=== PATIENT | male | born 1940 | race Caucasian/White ===

== ENCOUNTER 2019-07-21 19:12 | Inpatient (IN) | payer MEDICARE ==
--- NOTE | 2019-07-21 20:30 | RAD ---
XR Chest 1 View Portable History: Altered mental status Comparison: None. Findings: Lungs are hyperinflated. No pneumothorax. No effusion. No confluent airspace consolidation. Cardiac silhouette and mediastinal contours are within normal limits. No acute osseous abnormality. Impression: Lung hyperinflation suggesting obstructive pulmonary disease otherwise no acute intrathor acic abnormality.
[2019-07-21 20:36] LABS: Hemoglobin 6.3 g/dL (14.0-18.0); Mean Corpuscular HGB CONC 33.6 g/dL (32.0-36.0); Mean Corpuscular Hemoglobin 32.1 pg (27.0-31.0); Mean Corpuscular Volume 95.7 fL (78.0-98.0); Mean Platelet Volume 9.4 fL (7.4-10.4); Platelet Count 220 thou/uL (130-400); Red Blood Cell (RBC) Count 1.95 mill/uL (4.70-6.10); White Blood Cell (WBC) Count 16.3 thou/uL (4.8-10.8)
--- NOTE | 2019-07-21 20:48 | CT ---
CT Brain WO Con History: Altered mental status Comparison: None. Findings: Mild atrophy. No acute hemorrhage or infarct. No midline shift or mass effect. Ventricular size and extra-axial CSF spaces are normal. Calvarium is intact. Small right maxillary sinus mucosal retention cyst. Globes are intact. Dehydration of orbital lens. Impression: No acute intracranial abnormality.
[2019-07-21 20:53] LABS: ALT (SGPT) 10 U/L (8-55); AST (SGOT) 14 U/L (5-34); Albumin 3.3 g/dL (3.4-4.8); Alkaline Phosphatase 41 U/L (40-110); Anion Gap 12 mmol/L (10-20); BUN (Urea Nitrogen) 44 mg/dL (8.4-25.7); Bilirubin, Total 0.8 mg/dL (0.2-1.2); CK (CPK) 34 U/L (30-200); Calc. Creatinine Clearance 0 mL/min (70-130); Carbon Dioxide 21 mmol/L (23-31); Chloride 111 mmol/L (98-107); Estimated GFR-MDRD 49; Glucose 112 mg/dL (83-110); Lipase 16 U/L (8-78); Potassium 4.1 mmol/L (3.5-5.1); Protein, Total 5.3 g/dL (5.8-8.1); Sodium 140 mmol/L (136-145)
[2019-07-21 20:59] LABS: Band 27 % (5-11); Hypochromia SLIGHT = 6-15 cells (100X) (0-5/hpf); Lymphocytes 4 % (21-51); MDiff Complete? YES; Neutrophil 69 % (42-75); Platelet Morphology Comment Appears Adequate
[2019-07-21 21:14] LABS: CKMB 1.3 ng/mL (0-6.6)
[2019-07-21] MEDS ORDERED: Pantoprazole 80 MG in Sodium Chloride 0.9% 100 ML IVP SCH (22:15)
[2019-07-21] MEDS ORDERED: Pantoprazole 40 MG VIAL ONE (22:47)
[2019-07-21] MEDS ORDERED: Protamine Sulfate 50 MG/5 ML VIAL ONE (22:47)
[2019-07-22 00:28] LABS: Bilirubin Negative (Negative); Blood, Urine Negative (Negative); Clarity Clear (Clear); Glucose, Urine (Dipstick) Normal (Negative); Leukocyte Negative Leu/uL (Negative); Nitrite Negative (Negative); Protein, Urine (Dipstick) 10 mg/dL (Neg-Trace); Urobilinogen Normal mg/dL (Less than 2)
[2019-07-22 00:38] LABS: Amphetamine Not Detected (NotDetected); Barbiturates Screen Not Detected (NotDetected); Benzodiazepine Screen Not Detected (NotDetected); Cocaine Metabolite Screen Not Detected (NotDetected); Medtox Control Line Valid? VALID (VALID); Medtox Reader # READER 4; Methadone Not Detected (NotDetected); Methamphetamine Not Detected (NotDetected); Opiate Screen Not Detected (NotDetected); Oxycodone Screen Not Detected (NotDetected); Phencyclidine (PCP) Not Detected (NotDetected); THC/Cannabinoid Screen Not Detected (NotDetected); Tricyclic Screen Not Detected (NotDetected)
[2019-07-22 01:27] VITALS: BMI 17.9
[2019-07-22] MEDS ORDERED: Ondansetron PF 4 MG/2 ML Vial IVP PRN (01:31)
[2019-07-22] MEDS ORDERED: Ondansetron ODT 4 MG TAB SL PRN (01:31)
[2019-07-22] MEDS: Sodium Chloride 0.9% 1,000 ML IV SCH ×2 (03:47→16:03)
[2019-07-22] MEDS ORDERED: traMADol HCl 50 MG TAB PO PRN ×2 (08:42→09:33)
[2019-07-22] MEDS ORDERED: FLU VACC TS2019-20(65YR UP)/PF 180 MCG/0.5 ML SYRINGE IM ONE (09:00)
[2019-07-22] MEDS ORDERED: Metoprolol Tartrate 50 MG TAB PO SCH (09:00)
[2019-07-22] MEDS ORDERED: Dutasteride 0.5 MG CAP PO SCH (09:00)
[2019-07-22] MEDS ORDERED: Prevnar 13-Val Conj/PF 0.5 ML SYRINGE IM ONE (09:00)
[2019-07-22] MEDS: Metoprolol Tartrate 50 MG TAB PO SCH ×2 (09:43→22:02)
[2019-07-22] MEDS ORDERED: Pantoprazole 80 MG, Admixture Fee 1 EACH in Sodium Chloride 0.9% 100 ML IVP SCH (09:45)
[2019-07-22] MEDS: Vancomycin HCl 1 GM in Premix Bag 1 BAG IVPB SCH (09:59)
[2019-07-22 10:19] LABS: Hemoglobin 6.6 g/dL (14.0-18.0)
[2019-07-22] MEDS: Piperacillin/Tazobactam 3.375 GM in Sodium Chloride 0.9% 100 ML IVPB SCH ×3 (12:18→22:01)
[2019-07-22] MEDS ORDERED: metroNIDAZOLE 500 MG in Premix Bag 1 BAG IVPB SCH (15:00)
[2019-07-22] MEDS: Vancomycin HCl 25 MG/ML Oral PO SCH ×2 (16:02→22:07)
--- NOTE | 2019-07-22 16:10 | HP ---
CHIEF COMPLAINT: Altered mental status. HISTORY OF PRESENT ILLNESS: This patient is an 79-year-old male, who was brought into the emergency department via EMS. The patient is confused and was unable to give any significant history. Apparently, EMS told the ER that he was brought in because of altered mental status and that he had not been himself for the last couple of weeks. I did call the patient's common-law , Ms. Eastman and she says that he actually does not have any underlying dementia that she is aware of. He is normally of fairly sound mind. He was admitted to [facility] on July 03, at which time, he was diagnosed with atrial fibrillation. On discharge, he was sent home on anticoagulation with Eliquis. He also has rheumatoid arthritis and apparently has been taking some meloxicam related to that and some spinal stenosis, which is followed by Dr. Garibay, the curatorial specialist in [place]. He also has a history of diverticulosis found on colonoscopy by Dr. Howe. She reports that for the last couple of weeks since that discharge, the patient has had some confusion and altered mental status. He has been dealing with some constipation, but over the last several days, he has stopped eating, became profoundly weak and in fact had to crawl to the bathroom yesterday. He has reported some increased thirst and they noted that he had a temperature of 100.3. The patient has been on home oxygen since his discharge for the atrial fibrillation, but yesterday he was trying to stay on a couch close to the bathroom and essentially was too weak and refusing to get back to bed, where his to care for him, so they called the ambulance. She is unaware of any diarrheal illnesses that he has had. REVIEW OF SYSTEMS: Again, the patient is unable to give much history, but his reports the decreased appetite, increased thirst, and about a 20-pound weight loss over the last couple of years. PAST MEDICAL HISTORY: Atrial fibrillation, rheumatoid arthritis, spinal stenosis, diverticulosis, chronic hypoxic respiratory failure requiring home oxygen. FAMILY HISTORY: Unobtainable. SOCIAL HISTORY: The patient quit smoking about 15 years ago. He lives with his common-law in the [place] area. We will discuss code status further once the patient's family arrives later today, in the interim remained full code. CURRENT MEDICATIONS: 1. Metoprolol 50 mg b.i.d. 2. Tramadol 50 mg daily p.r.n. 3. Meloxicam 15 mg daily. 4. Eliquis 5 mg b.i.d. 5. Dutasteride 0.5 mg daily. ALLERGIES: NONE KNOWN. PHYSICAL EXAMINATION: VITAL SIGNS: Temperature is 97.8, pulse 63, respirations 16, BP is 116/56, O2 saturation has been 100% on room air. GENERAL APPEARANCE: Age-appropriate male. He is in no distress. He is awake and alert. He is generally pleasant and cooperative. He is confused. HEENT: PERRL. No OP lesions. NECK: Supple and symmetric. HEART: Irregular without murmurs. LUNGS: Clear to auscultation with no wheezes or rales noted. ABDOMEN: Soft, nontender, and nondistended. Positive bowel sounds. No masses. No organomegaly. EXTREMITIES: No cyanosis, clubbing, or edema. PSYCH: Again, the patient is not oriented, but he has normal behavior, slightly flat affect. NEURO: The patient appears to have full range of motion in all extremities with no focal deficits. LABORATORY DATA: White count 16.3, hemoglobin 6.3, platelets 220, 27% bands, 4% lymphocytes. Subsequent recheck of hemoglobin was 7.0. Sodium is 140, potassium 4.1, chloride 111, CO2 is 21, BUN 44, creatinine is 1.38, glucose 112. LFTs normal. Troponin 0.039. BNP 757. Albumin 3.3. Urinalysis negative. Drug screen negative. Stool for occult blood is positive. Chest x-ray is negative. CT brain shows no acute intracranial abnormalities. Actually, EKG shows incomplete right bundle branch block. IMPRESSION AND PLAN: 1. Sepsis with end-organ damage including acute renal insufficiency and altered mental status. We will check a lactic acid level, blood cultures and start empiric antibiotics. His chest x-ray is clear. His urine looks normal. There is no apparent source of infection otherwise. His tachycardia could potentially be masked by the beta blockers, he has been receiving some fluids. We will likely give him a small additional bolus. 2. GI bleed. The patient has heme-positive stools and significant anemia. He is on anti-inflammatories and has recently been started on anticoagulation, which is likely the source of the bleeding, however, the specific site is not yet known. His reports he has had constipation, but apparently he had a loose stool during the night, so we will get GI to consult. 3. Acute renal insufficiency. I do not have any prior numbers on the patient. The says he does not have history of any serious kidney problems. Currently, his GFR is at 49, appears to be more prerenal. Again, we will give some fluids and continue to monitor. 4. Congestive heart failure as evidenced by elevated BNP, may be high-output failure secondary to severe anemia. We will try to obtain records from [place]. 5. Altered mental status, likely due to the underlying infection, possibly dehydration and anemia. We will continue to monitor. 6. Dehydration, possibly just prerenal from the anemia. Again, we will hydrate. Continue to follow. 7. History of rheumatoid arthritis, holding his anti-inflammatories. 8. History of spinal stenosis, holding inflammatories. 9. History of atrial fibrillation, holding his anticoagulation in light of the apparent GI bleed. Job ID: [id number]
[2019-07-22 18:58] LABS: Hemoglobin 9.2 g/dL (14.0-18.0)
--- NOTE | 2019-07-22 21:30 | CON ---
DATE OF CONSULTATION: REASON FOR CONSULTATION: Anemia, "lower GI bleed." HISTORY OF PRESENT ILLNESS: Mr. Keating is an 79-year-old who was admitted through the emergency room last night at 1913 hours. He was brought in because his family noted he was confused and sitting on the floor. Apparently, he has had confusion for 3 to 4 weeks, but in the past 2 weeks, he really has not known where he is. This history all comes from the ER records as the patient cannot add history, and I have called the patient's daughter, his number is in the chart, but there is no answer at this time. Apparently, he was brought to the emergency room. He was found to be relatively stable and in no distress. He had a blood pressure of 110/58, pulse of 88, respirations 16, temperature 98.3. Someone along the line, they decided he is having GI bleeding. They reported by review there, no diarrhea or constipation, and I did not see a documented rectal exam from the emergency room, but apparently, he had hemoglobin of 6.3 on presentation. He received 1 unit of blood last night. His hemoglobin was 7 at 4:36 this morning. At 9, it was rechecked, it was 6.6. The patient states that he thinks maybe he is having dark stools for 4 or 5 days now. He denies any nausea or vomiting. He actually ate a regular diet today. He denies any abdominal pain. He does not really know much about his medical history and he asked us to ask his daughter. I have talked with the nurses in the room. He has had 4 stools today, which have been about 50 to 100 mL and very dark black. He has had no vomiting. Apparently, he has also tested positive for Clostridium difficile. He does not recall if he has been on recent antibiotics. Apparently, he gets his routine care in [place]. He does report he had a colonoscopy with a surgeon over in [place], Dr. Carley gonzales thinks, but he does not know the findings. PAST MEDICAL HISTORY: Unknown. PAST SURGICAL HISTORY: Unknown. He has reported colonoscopy in the past, but he has unknown what they showed. MEDICATIONS: At home, he is listed; 1. Dutasteride. 2. Eliquis. 3. Meloxicam. 4. Tramadol. 5. Metoprolol. Medications here; 1. Avodart. 2. Lopressor. 3. Zofran. 4. Protonix drip. 5. Zosyn .. 6. Normal saline at 70. 7. Tramadol p.r.n. 8. Vancomycin IV. REVIEW OF SYSTEMS: The patient denies any shortness of breath, chest pain, dyspnea on exertion, dysphagia, odynophagia, weight loss, fever, chills, nausea, or vomiting. He is unsure why he is on blood thinners. He is unsure if he takes meloxicam daily. He denies rashes, myalgias, or arthralgias throughout. He does not think he has been losing weight. PHYSICAL EXAMINATION: VITAL SIGNS: Temperature 97.2, pulse 88, blood pressure is 112/55. GENERAL: He is thin. He has some temporal wasting. LUNGS: Clear. HEART: Regular rate and rhythm without clicks, rubs, or murmurs. ABDOMEN: Soft and nontender with no rebound or guarding. EXTREMITIES: No clubbing, cyanosis, or edema. He is able to get up and down from the bed on his own. SKIN: Without rash or lesions. LABORATORY DATA: MCV was 95, white count was 16.3 on admission, he had 27% bands, 220 platelets. He is receiving a unit of blood now. His sodium was 140 last night on admission, potassium 4.1, BUN and creatinine 44 and 1.38. Liver function tests normal. Protein 5.3, albumin 3.2. TSH 0.5773. Troponin is 0.039. BNP 753. IMAGING STUDIES: He has had a chest x-ray in the emergency room last night that showed hyperinflation consistent with COPD. He had a brain CT that was nondiagnostic. ASSESSMENT: 1. Severe anemia with unclear baseline hemoglobin and what appears to be melenic stools. He has risk factors for bleeding that he is on Eliquis, reviewed his prescription list and his home medicines of meloxicam which is a nonsteroidal anti-inflammatory. Unfortunately, he has just eaten food today and he has not really been resuscitated very much since admission last night at around 7 p.m., so unless he has acute hemorrhage which is life-threatening as he is going to need to be resuscitated first and he is going to need to be n.p.o. before he can have an endoscopy. 2. The patient is on anticoagulation for unknown causes. 3. I have made a phone call to the patient's daughter, the number is in the chart, but that went to a voicemail. RECOMMENDATIONS: 1. Continue IV Protonix drip. 2. N.p.o. except for medications. 3. Transfuse to keep hemoglobin greater than 7. 4. Positive Clostridium difficile toxin and antigen. We would treat with p.o. vancomycin, IV Flagyl. I do not know if there is any reason for Zosyn, but if you rule out other infections, I would stop any unnecessary antibiotics as soon as possible. Etiology for the Clostridium difficile is unclear and unknown. He does not have any signs of toxic megacolon at this time. If he has any clinical decompensation, it maybe reasonable to consider CAT scan of the abdomen. Hopefully, we can get some more information on his past history from his family when they arrive. ADDENDUM: Mr. Keating' daughter did return to the hospital. She does not have a lot of information who states he was in the hospital for about 3 or 4 days in the ICU at [facility] about 2-3 weeks ago. Really since that time, he has been somewhat confused. She does not really have much more information except for his irregular areas in his heart. They did see Dr. Seymour, a sock examiner in [place] in followup a few weeks ago and he was supposed to go back again this Friday. I talked also to Dr. Cruz, who notes a little more information that atrial fibrillation developed when he was here in the hospital recently and that is why he was started on the Eliquis, was apparently a new medication. Not a lot of other medical history is known. We are going to ask the daughter to sign a release of information so we can get some of his old records. I have talked with Dr. Cruz as well. We are going to treat the C diff because that just came back and we are going to go ahead and set him up for endoscopy tomorrow and transfuse and monitor H and H. Job ID: [id number]
[2019-07-22] MEDS: Pantoprazole 40 MG VIAL IVP SCH (22:02)
[2019-07-22] MEDS: metroNIDAZOLE 500 MG in Premix Bag 1 BAG IVPB SCH (22:02)
[2019-07-22 22:10] LABS: Hemoglobin 9.3 g/dL (14.0-18.0)
[2019-07-23] MEDS: Piperacillin/Tazobactam 3.375 GM in Sodium Chloride 0.9% 100 ML IVPB SCH ×2 (04:25→14:31)
[2019-07-23] MEDS: Vancomycin HCl 25 MG/ML Oral PO SCH ×4 (04:25→21:45)
[2019-07-23] MEDS: metroNIDAZOLE 500 MG in Premix Bag 1 BAG IVPB SCH ×3 (04:26→22:50)
[2019-07-23 06:02] LABS: #Eosinphils 0.1 thou/uL (0.0-0.7); #Monocytes 0.7 thou/uL (0.11-0.59); #Neutrophils 7.4 thou/uL (1.40-6.50); %Basophils 0.1 % (0.0-1.0); %Eosinophils 1.3 % (0.0-10.0); %Lymphocytes 11.1 % (21.0-51.0); %Monocytes 7.5 % (0.0-10.0); Hemoglobin 8.4 g/dL (14.0-18.0); Mean Corpuscular HGB CONC 33.4 g/dL (32.0-36.0); Mean Corpuscular Hemoglobin 30.7 pg (27.0-31.0); Mean Platelet Volume 9.5 fL (7.4-10.4); Platelet Count 201 thou/uL (130-400); RBC Distribution Width 17.7 % (11.5-14.5); Red Blood Cell (RBC) Count 2.72 mill/uL (4.70-6.10); White Blood Cell (WBC) Count 9.3 thou/uL (4.8-10.8)
[2019-07-23 06:35] LABS: ALT (SGPT) 8 U/L (8-55); AST (SGOT) 13 U/L (5-34); Albumin 2.6 g/dL (3.4-4.8); Alkaline Phosphatase 38 U/L (40-110); Anion Gap 9 mmol/L (10-20); BUN (Urea Nitrogen) 25 mg/dL (8.4-25.7); Bilirubin, Total 1.9 mg/dL (0.2-1.2); Calc. Creatinine Clearance 49 mL/min (70-130); Calcium 7.4 mg/dL (7.8-10.44); Carbon Dioxide 19 mmol/L (23-31); Chloride 115 mmol/L (98-107); Estimated GFR-MDRD 69; Globulin 1.8 g/dL (2.4-3.5); Glucose 93 mg/dL (83-110); Potassium 3.6 mmol/L (3.5-5.1); Protein, Total 4.4 g/dL (5.8-8.1); Sodium 139 mmol/L (136-145)
[2019-07-23] MEDS: Metoprolol Tartrate 50 MG TAB PO SCH ×2 (08:07→21:45)
[2019-07-23] MEDS: Pantoprazole 40 MG VIAL IVP SCH ×2 (08:07→21:46)
[2019-07-23] MEDS: Sodium Chloride 0.9% 1,000 ML IV SCH (08:07)
[2019-07-23] MEDS: Dutasteride 0.5 MG CAP PO SCH (08:07)
[2019-07-23] MEDS: Vancomycin HCl 1 GM in Premix Bag 1 BAG IVPB SCH (09:36)
--- NOTE | 2019-07-23 10:17 | PDOC.HOSPP ---
- Subjective Encounter Date: 07/23/19 Encounter Time: 10:15 Subjective: Doing much better. Diarrhea has improved. No other complaints. - Objective Vital Signs & Weight: Vital Signs (12 hours) Temp Pulse Resp BP Pulse Ox 07/23/19 08:00 97.6 F 56 L 18 115/57 L 96 07/23/19 04:00 62 138/60 Weight Admit Weight 135 lb 9.6 oz Weight 135 lb 9.6 oz I&O: 07/22/19 07/23/19 07/24/19 06:59 06:59 06:59 Intake Total 645 3280 Output Total 960 Balance 645 8050 Result Diagrams: 07/23/19 05:26 07/23/19 05:26 Hospitalist ROS - Medication Medications: Active Medications Generic Name Dose Route Start Last Admin Trade Name Freq PRN Reason Stop Dose Admin Dutasteride 0.5 mg 07/23/19 09:00 07/23/19 08:07 Avodart PO 0.5 mg DAILY DILIP Administration Sodium Chloride 1,000 mls @ 70 mls/hr 07/22/19 01:31 07/23/19 08:07 Normal Saline 0.9% IV 07/23/19 12:15 Not Given .[id number] DILIP Piperacillin Sod/Tazobactam 100 mls @ 200 mls/hr 07/22/19 12:00 07/23/19 04: 25 Sod 3.375 gm/ Sodium Chloride IVPB 100 mls Q6HR DILIP Administration Vancomycin HCl 1 gm/ Device 200 mls @ 200 mls/hr 07/22/19 10:00 07/23/19 09: 36 IVPB 200 mls 1000 DILIP Administration Metronidazole 500 mg/ Device 100 mls @ 100 mls/hr 07/22/19 22:00 07/23/19 04: 26 IVPB 100 mls Q8HR DILIP Administration Metoprolol Tartrate 50 mg 07/22/19 09:00 07/23/19 08:07 Lopressor PO 50 mg BID DILIP Administration Pantoprazole Sodium 40 mg 07/22/19 21:00 07/23/19 08:07 Protonix IVP 40 mg Q12HR DILIP Administration Sodium Chloride 10 ml 07/22/19 21:00 07/23/19 08:08 Flush - Normal Saline IVF 10 ml Q12HR DILIP Administration Vancomycin HCl 125 mg 07/22/19 15:00 07/23/19 09:36 First Vancomycin PO 125 mg 0300,0900,1500,2100 DILIP Administration - Exam General Appearance: NAD, awake alert Heart: RRR, no murmur, no gallops, no rubs, normal peripheral pulses Respiratory: CTAB, no wheezes, no rales, no ronchi, normal chest expansion, no tachypnea, normal percussion Gastrointestinal: soft, non-tender, non-distended, normal bowel sounds, no palpable masses, no hepatomegaly, no splenomegaly, no bruit Musculoskeletal: normal tone, normal strength Psychiatric: normal affect, normal behavior, A&O x 3 Hosp A/P (1) C. difficile colitis Code(s): A04.72 - ENTEROCOLITIS D/T CLOSTRIDIUM DIFFICILE, NOT SPCF RECUR Status: Acute (2) Anemia Code(s): D64.9 - ANEMIA, UNSPECIFIED Status: Acute (3) GIB (gastrointestinal bleeding) Code(s): K92.2 - GASTROINTESTINAL HEMORRHAGE, UNSPECIFIED Status: Acute (4) Atrial fibrillation Code(s): I48.91 - UNSPECIFIED ATRIAL FIBRILLATION Status: Acute (5) Anticoagulant long-term use Code(s): Z79.01 - ZIPPER JOINER (CURRENT) USE OF ANTICOAGULANTS Status: Acute (6) KEY (acute kidney injury) Code(s): N17.9 - ACUTE KIDNEY FAILURE, UNSPECIFIED Status: Acute (7) Rheumatoid arthritis Code(s): M06.9 - RHEUMATOID ARTHRITIS, UNSPECIFIED Status: Acute - Plan Doing much better today. Mental state is vastly improved. Hgb better after transfusion. Continue to monitor H/H. PO abx for C diff. Endoscopy today for GIB. Continue PPI. Off anticoag. Looks like NSR. Full code. Daughter is surrogate.
[2019-07-23] MEDS ORDERED: Ondansetron HCl/PF 4 MG/2 ML Vial IVP PRN (13:31)
[2019-07-23] MEDS ORDERED: Promethazine HCl 25 MG/ML VIAL IM PRN (13:31)
[2019-07-23] MEDS ORDERED: Promethazine HCl 25 MG/ML VIAL SLOW IVP PRN (13:31)
[2019-07-23] MEDS ORDERED: Lidocaine 1% PF 5 ML VIAL ONE (16:25)
[2019-07-23] MEDS ORDERED: PROPOFOL 200 MG/20 ML VIAL ONE (16:25)
[2019-07-24] MEDS: Vancomycin HCl 25 MG/ML Oral PO SCH ×4 (05:49→20:33)
[2019-07-24] MEDS: metroNIDAZOLE 500 MG in Premix Bag 1 BAG IVPB SCH ×2 (05:49→18:39)
[2019-07-24 07:45] LABS: #Eosinphils 0.2 thou/uL (0.0-0.7); #Lymphocytes 2.1 thou/uL (1.20-3.40); #Monocytes 1.1 thou/uL (0.11-0.59); #Neutrophils 7.4 thou/uL (1.40-6.50); %Basophils 0.4 % (0.0-1.0); %Lymphocytes 19.3 % (21.0-51.0); %Monocytes 9.8 % (0.0-10.0); %Neutrophils 68.6 % (42.0-75.0); Hemoglobin 9.8 g/dL (14.0-18.0); Mean Corpuscular HGB CONC 32.8 g/dL (32.0-36.0); Mean Corpuscular Hemoglobin 30.1 pg (27.0-31.0); Mean Corpuscular Volume 91.7 fL (78.0-98.0); Mean Platelet Volume 8.9 fL (7.4-10.4); Platelet Count 312 thou/uL (130-400); RBC Distribution Width 17.7 % (11.5-14.5); Red Blood Cell (RBC) Count 3.27 mill/uL (4.70-6.10); White Blood Cell (WBC) Count 10.7 thou/uL (4.8-10.8)
[2019-07-24] MEDS: Metoprolol Tartrate 50 MG TAB PO SCH ×2 (10:15→20:32)
[2019-07-24] MEDS: Dutasteride 0.5 MG CAP PO SCH (10:15)
[2019-07-24] MEDS: Pantoprazole 40 MG VIAL IVP SCH ×2 (10:15→20:33)
--- NOTE | 2019-07-24 15:53 | PRG ---
DATE OF SERVICE: 07/24/2019 SUBJECTIVE: Mr. Keating is up, walking around his room. He is dressed. He is confused, consistent with history of dementia. He remains on Protonix and oral vancomycin and IV Flagyl. The nurses note he has had no diarrhea or melena. He confirms the same. He states he is eating a regular diet. OBJECTIVE: VITAL SIGNS: Temperature is 98.7, pulse 59 and 62, and blood pressure 130/60. ABDOMEN: Soft and nontender. There is no rebound or guarding. LABORATORY DATA: Hemoglobin is 9.8 today, white count 10.7, and platelet count 312. AST and ALT are 13 and 8, alkaline phosphatase 38, albumin 2.6, and total protein 4.4. ASSESSMENT: 1. Peptic ulcer disease. No active bleeding now. 2. Recent diagnosis of atrial fibrillation, on anticoagulation held. 3. Clostridium difficile. He was recently at an outside hospital in [place]. It is unclear what his treatment was. Their records are being obtained. This seems to be improving with resolution of tachycardia and leukocytosis. His appetite is improving. RECOMMENDATIONS: Stop IV Flagyl. Continue p.o. vancomycin, probiotics, and PPI. We will follow along with you. Job ID: [id number] MTDD
[2019-07-24] MEDS ORDERED: Saccharomyces boulardii 250 MG CAP PO SCH (21:00)
--- NOTE | 2019-07-24 22:26 | PDOC.HOSPP ---
- Subjective Encounter Date: 07/24/19 Encounter Time: 11:00 Subjective: Patient seen and examined for GI bleeding and C diff diarrhea. Diarrhea improving. No CP or SOB. No other complaints. No overnight events - Objective Vital Signs & Weight: Vital Signs (12 hours) Temp Pulse Resp BP BP Pulse Ox 07/24/19 20:00 97.9 F 57 L 16 126/60 95 07/24/19 16:00 98.3 F 89 16 107/58 L 100 07/24/19 11:37 97 F L 59 L 20 130/60 100 Weight Admit Weight 135 lb 9.6 oz Weight 142 lb 14.88 oz I&O: 07/23/19 07/24/19 07/25/19 06:59 06:59 06:59 Intake Total 3280 930 800 Output Total 960 100 Balance 2320 930 700 Result Diagrams: 07/24/19 07:19 07/23/19 05:26 EKG Reviewed by me: Yes (Tele SR) Hospitalist ROS - Review of Systems Respiratory: denies: cough, dry, shortness of breath, hemoptysis, SOB with excertion, pleuritic pain, sputum, wheezing, other Cardiovascular: denies: chest pain, palpitations, orthopnea, paroxysmal noc. dyspnea, edema, light headedness, other - Medication Medications: Active Medications Generic Name Dose Route Start Last Admin Trade Name Freq PRN Reason Stop Dose Admin Dutasteride 0.5 mg 07/23/19 09:00 07/24/19 10:15 Avodart PO 0.5 mg DAILY DILIP Administration Metoprolol Tartrate 50 mg 07/22/19 09:00 07/24/19 20:32 Lopressor PO 50 mg BID DILIP Administration Pantoprazole Sodium 40 mg 07/22/19 21:00 07/24/19 20:33 Protonix IVP 40 mg Q12HR DILIP Administration Saccharomyces Boulardii 250 mg 07/24/19 21:00 07/24/19 20:33 Florastor PO 250 mg HS DILIP Administration Sodium Chloride 10 ml 07/22/19 21:00 07/24/19 20:39 Flush - Normal Saline IVF 10 ml Q12HR DILIP Administration Vancomycin HCl 125 mg 07/22/19 15:00 07/24/19 20:33 First Vancomycin PO 125 mg 0300,0900,1500,2100 DILIP Administration - Exam General Appearance: NAD Neck: supple, no JVD Heart: RRR, no rubs Respiratory: CTAB, no wheezes, no ronchi Gastrointestinal: soft, non-distended, normal bowel sounds Extremities: no edema Hosp A/P (1) GIB (gastrointestinal bleeding) Code(s): K92.2 - GASTROINTESTINAL HEMORRHAGE, UNSPECIFIED Status: Acute (2) Acute blood loss anemia Code(s): D62 - ACUTE POSTHEMORRHAGIC ANEMIA Status: Acute (3) C. difficile diarrhea Code(s): A04.72 - ENTEROCOLITIS D/T CLOSTRIDIUM DIFFICILE, NOT SPCF RECUR Status: Acute (4) Paroxysmal A-fib Code(s): I48.0 - PAROXYSMAL ATRIAL FIBRILLATION Status: Chronic (5) HTN (hypertension) Code(s): I10 - ESSENTIAL (PRIMARY) HYPERTENSION Status: Chronic - Plan plan discussed w/ family, DVT proph w/SCDs Monitor H/H Cont PO Vanc s/p 3 units PRBC AM labs Cont Metoprolol
--- NOTE | 2019-07-24 23:15 | EKG ---
Test Reason : Blood Pressure : / mmHG Vent. Rate : 071 BPM Atrial Rate : 071 BPM P-R Int : 114 ms QRS Dur : 142 ms QT Int : 452 ms P-R-T Axes : 058 055 062 degrees QTc Int : 491 ms Normal sinus rhythm Right bundle branch block Abnormal ECG Confirmed by MIGEL TERRAZAS, HONEY ([id number]), city editor GUADALUPE RENEE ([id number]) on 07/24/2019 11:15:33 PM Referred By: Confirmed By:HONEY LAINEZ MD
[2019-07-25] MEDS: Vancomycin HCl 25 MG/ML Oral PO SCH ×2 (02:55→08:38)
[2019-07-25 06:19] LABS: Platelet Count 338 thou/uL (130-400)
[2019-07-25 06:47] LABS: ALT (SGPT) 8 U/L (8-55); AST (SGOT) 11 U/L (5-34); Albumin 2.8 g/dL (3.4-4.8); Alkaline Phosphatase 36 U/L (40-110); Anion Gap 8 mmol/L (10-20); BUN (Urea Nitrogen) 13 mg/dL (8.4-25.7); Bilirubin, Total 0.7 mg/dL (0.2-1.2); Calc. Creatinine Clearance 59 mL/min (70-130); Calcium 7.6 mg/dL (7.8-10.44); Carbon Dioxide 22 mmol/L (23-31); Chloride 114 mmol/L (98-107); Estimated GFR-MDRD 79; Globulin 1.7 g/dL (2.4-3.5); Glucose 85 mg/dL (83-110); Potassium 3.3 mmol/L (3.5-5.1); Protein, Total 4.5 g/dL (5.8-8.1); Sodium 141 mmol/L (136-145)
[2019-07-25 07:49] VITALS: TEMP 98.2
[2019-07-25] MEDS: Dutasteride 0.5 MG CAP PO SCH (08:38)
[2019-07-25] MEDS: Metoprolol Tartrate 50 MG TAB PO SCH (08:39)
[2019-07-25] MEDS: Pantoprazole 40 MG VIAL IVP SCH (08:39)
[2019-07-25 12:22] VITALS: BP 166/42
--- NOTE | 2019-07-25 12:39 | DIS ---
DATE OF ADMISSION: 07/21/2019 DATE OF DISCHARGE: 07/25/2019 DISCHARGE DIAGNOSES: 1. Acute gastrointestinal bleed, multifactorial including Eliquis and meloxicam, status post 3 units of packed red blood cells. 2. Acute kidney injury secondary to volume depletion, improved. 3. Clostridium difficile antigen and toxin positive. 4. Hypokalemia, mild. 5. Acute metabolic encephalopathy, multifactorial, improved. 6. Chronic anticoagulation with Eliquis, on hold. 7. History of atrial fibrillation with current sinus mechanism on chronic anticoagulation with Eliquis. CONSULTATIONS: Dr. Foss with GI Service. PERTINENT LABORATORY AND X-RAY FINDINGS: Potassium ranged between 3.3 to 4.1. Creatinine ranged between 0.92 to 1.38. Estimated GFR ranged between 49 to 79. BNP 757. TSH 0.58. Albumin ranged between 2.6 to 2.8. CBC showed hemoglobin ranging between 6.3 to 9.8, MCV 92. Urine drug screen dated 07/22/2019, negative. Stool Hemoccult dated 07/21/2019, positive x1. Blood cultures x2 dated 07/22/2019, showed no growth at 48 hours. Stool culture dated 07/22/2019, showed normal enteric lela. Campylobacter antigen and Shigella toxin negative on 07/22/2019. C difficile antigen toxin positive on 07/22/2019. HOSPITAL COURSE: The patient was initially admitted after presenting with altered mental status and anemia. The patient underwent extensive evaluation including metabolic and radiographic evaluation showing evidence of potential GI bleed with heme-positive stool and acute anemia with hemoglobin in the 6 range. The patient received initial 1 unit of packed red blood cells with additional 2 units of packed red blood cells for the remainder of the hospital course. The patient was placed on IV Protonix and discontinued on Eliquis and meloxicam due to concern for potential peptic ulcer disease. The patient underwent EGD evaluation with gastric biopsies obtained, but no evidence for acute GI bleeding source. Current recommendations are to hold Eliquis for approximately 7 to 10 days after discharge and monitor serial hemoglobins. The patient to continue a proton pump inhibitor prophylactically. The patient also received treatment for C difficile antigen toxin positivity with IV Flagyl and oral vancomycin. The patient transitioned off IV Flagyl with recommendations to continue oral vancomycin to complete a 7-to 10-day course of antibiotic therapy after discharge. Overall, the patient did clinically stabilize with supportive management. Overall, stool volume improved as well as frequency of stools prior to discharge. I have examined the patient at the time of discharge and discussed followup instructions. The patient overall verbalizes understanding and in agreement with discharge and ready for discharge on 07/25/2019. DISCHARGE MEDICATIONS: 1. Dutasteride 0.5 mg p.o. daily. 2. Metoprolol tartrate 50 mg p.o. b.i.d. 3. Tramadol 50 mg p.o. daily. 4. Eliquis 5 mg p.o. b.i.d., hold x5 days. 5. Meloxicam 15 mg 1 tablet p.o. daily, hold x5 days. 6. Florastor 250 mg p.o. at bedtime. 7. Vancomycin 125 mg p.o. q.6 hours x10 days. FOLLOWUP: The patient may follow up with his primary care provider, Dr. Eliot Lujan in [place], [place]. CONDITION ON DISCHARGE: Fair. ACTIVITY: Ad-marnie. DIET: Regular. CODE STATUS: Full. DISPOSITION: Home on 07/25/2019. TIME SPENT: Total time preparing and coordinating discharge, 37 minutes. Job ID: [id number]
--- NOTE | 2019-07-27 09:27 | OP ---
DATE OF PROCEDURE: 07/23/2019 PREPROCEDURE DIAGNOSIS: History of melena with drop in hemoglobin. POSTPROCEDURE DIAGNOSES: 1. Large duodenal ulcer, clear anterior aspect to the bulb, 1.5 cm deep without active bleeding. 2. Gastritis. PROCEDURE PERFORMED: Esophagogastroduodenoscopy with biopsies for Helicobacter pylori in the stomach. RECOMMENDATIONS: Continue PPI therapy. Await biopsies. Avoid NSAIDs. Treat Clostridium difficile as appropriate. ANESTHESIA: TIVA. PROCEDURE IN DETAIL: The patient was informed of the risks, benefits, and possible complications of endoscopy including perforation, bleeding, reaction to medication, and aspiration. Informed consent was obtained. The patient was brought to endoscopy suite, where he was sedated. Once he was comfortable, a bite block was placed inside the orifice. The endoscope was advanced through the esophagus, stomach, and second and third portions of the duodenum and slowly removed. The esophagus was normal. The duodenal bulb was notable for a 1.5 cm deep nonbleeding white-based ulcers with some black spots, but no visible vessels. This was in the anterior superior aspect of the bulb. The duodenum distally was normal. There was no evidence of strictures or outlet obstruction. The stomach was notable for mild gastritis and biopsies were taken for H pylori. Retroflexed views in the stomach were normal. The stomach had normal sensibility. The scope was then removed. The patient tolerated the procedure well. There were no complications. Job ID: [id number]
--- NOTE | 2019-07-27 18:27 | PQF ---
LE BRAGG CHARLES DO [id number] CLINICAL DOCUMENTATION CLARIFICATION FORM: POST DISCHARGE Addendum to original discharge summary date: ____ Late entry note date: __ DATE: 07-27-2019 ATTN: Dr. Chevy Sagastume Please exercise your independent, professional judgment in responding to the clarification form. Clinical indicators are provided on the bottom of this form for your review Can you please specify whether sepsis is ruled in or ruled out during this encounter? Please check appropriate box(s) to clarify if the following diagnosis has been ruled in or ruled out: Sepsis [ ] Ruled in diagnosis [ ] Continue to treat [ ] Resolved [ x ] Ruled out diagnosis [ ] Cannot rule out diagnosis [ ] Other diagnosis please specify: [ ] Unable to determine CLINICAL INDICATORS: H&P p2 07/21-Sepsis Consult p3 07/22-Clostridium difficile colitis Hospitalist PN p4 07/23-KEY DS p1 07/25-Metabolic Encephalopathy RISK FACTORS: H&P p1 07/21-The patient is confused and was unable to give any significant history H&P p1 07/21-She is unaware of any diarrhea illnesses that he has had H&P p2 07/21-BP H&P p2 07/21-WBC 16.3 H&P p2 07/21-Sepsis with end-organ damage including acute renal insuffiency and altered mental status H&P p3 07/21-The is no apparent source of infection otherwise TREATMENTS: 12/20/2009-IV Vancomycin 12/20/2009-IV Zosyn 12/20/2009-IV Protonix (This form is maintained as a part of the permanent medical record) 2014 [employer] All Rights Reserved Jenny [email or web address] [not provided] MTDD
== END 2019-07-25 13:50 | disposition home or self-care (01) | DRG 377 ==
LOC: ERS 19:12 → 2NO 22:11
PROVIDERS: ADMIT Hospitalist; ATTEND Hospitalist
PROC: 30233N1 Transfusion of Nonautologous Red Blood Cells into Peripheral Vein, Percutaneous Approach (ICD-10-PCS; principal; 2019-07-21)
PROC: 3E02340 Introduction of Influenza Vaccine into Muscle, Percutaneous Approach (ICD-10-PCS; 2019-07-22)
PROC: 3E0234Z Introduction of Serum, Toxoid and Vaccine into Muscle, Percutaneous Approach (ICD-10-PCS; 2019-07-22)
PROC: 0DB78ZX Excision of Stomach, Pylorus, Via Natural or Artificial Opening Endoscopic, Diagnostic (ICD-10-PCS; 2019-07-23)
DX: K92.2 Gastrointestinal hemorrhage, unspecified (principal); G93.41 Metabolic encephalopathy; D62 Acute posthemorrhagic anemia; J96.11 Chronic respiratory failure with hypoxia; A04.72 Enterocolitis due to Clostridium difficile, not specified as recurrent; N17.9 Acute kidney failure, unspecified; D68.32 Hemorrhagic disorder due to extrinsic circulating anticoagulants; K27.4 Chronic or unspecified peptic ulcer, site unspecified, with hemorrhage; I10 Essential (primary) hypertension; E86.0 Dehydration; M48.00 Spinal stenosis, site unspecified; I48.0 Paroxysmal atrial fibrillation; T39.395A Adverse effect of other nonsteroidal anti-inflammatory drugs [NSAID], initial encounter; T45.515A Adverse effect of anticoagulants, initial encounter; E86.9 Volume depletion, unspecified; I50.9 Heart failure, unspecified; I11.9 Hypertensive heart disease without heart failure; E87.6 Hypokalemia; Z79.899 Other long term (current) drug therapy; Z87.891 Personal history of nicotine dependence; Z99.81 Dependence on supplemental oxygen; Z79.1 Long term (current) use of non-steroidal anti-inflammatories (NSAID); Z79.01 Long term (current) use of anticoagulants; Z23 Encounter for immunization
CPT/HCPCS: 36415; 36430; 70450; 71045; 80053; 80306; 81003; 82140; 82274; 82550; 82553; 83605; 83690; 83880; 84443; 84484; 85014; 85018; 85025; 85049; 86850; 86900; 86901; 87040; 87045; 87046; 87324; 87328; 87329; 87427; 87449; 88305; 88312; 90471; 90662; 90670; 93005; 96365; 96376; C9113; G0008; G0009; J2001; J2543; J2704; J2720; J3370; J3490; P9016

== ENCOUNTER 2019-08-05 05:51 | Observation (INO) | payer MEDICARE ==
[2019-08-05 07:07] LABS: Troponin I Less than 0.010 ng/mL (< 0.028)
[2019-08-05] MEDS ORDERED: Acetaminophen 325 MG TAB PO PRN (07:17)
[2019-08-05] MEDS ORDERED: Ondansetron ODT 4 MG TAB PO PRN (07:17)
[2019-08-05 08:09] LABS: Hemoglobin 9.7 g/dL (14.0-18.0); Mean Corpuscular HGB CONC 31.4 g/dL (32.0-36.0); Mean Corpuscular Hemoglobin 29.5 pg (27.0-31.0); Mean Platelet Volume 8.3 fL (7.4-10.4); Platelet Count 297 thou/uL (130-400); White Blood Cell (WBC) Count 6.4 thou/uL (4.8-10.8)
[2019-08-05 08:16] LABS: Iron 9 ug/dL (65-175); Iron Binding Capacity, Total 126 mcg/dL (261-462)
--- NOTE | 2019-08-05 08:16 | HP ---
HISTORY OF PRESENT ILLNESS: Out of time provider presumptively in [place]. This patient does not know who it is. The patient is referred to the [facility] hospitalist Service by [facility] after transfer from [place]. The patient referred for edema, increased creatinine, confusion. In fact, the patient thinks he is in [facility] [facility] record service. He does not know what year it is. He gives no complaints. In discussion of orientation, he does know who he is. REVIEW OF SYSTEMS: I do not believe is of any benefit, but here are the answers to his questions. GENERAL: No headaches, dizziness, fainting. EYES: No double vision, blurred vision, or flashing light. EAR, NOSE, AND THROAT: No ear pain or drainage. No nasal bleeding. No trouble swallowing. CARDIAC: No chest pain, orthopnea, or paroxysmal nocturnal dyspnea. RESPIRATION: No cough, wheezing, or asthma. GASTROINTESTINAL: No nausea, vomiting, diarrhea, or constipation. GENITOURINARY: No pain or blood on urination. MUSCULOSKELETAL: He is unaware of any swelling in his legs. No pain in his legs. NEUROLOGICAL: Denies any history of stroke, seizures, or focal weakness. PSYCHIATRIC: He denies any anxiety or depression. Oriented to person only. SKIN: No bruising, bleeding, or rash. HEME/LYMPH: No tender or swollen lymph nodes under his arms, neck, or groin. PAST MEDICAL HISTORY: Obtained from medical records, he has a fairly recent diagnosis of atrial fibrillations found in hospital in [place]. He has a history of rheumatoid arthritis, spinal stenosis, and diverticulosis. MEDICATIONS: I found three sets of medications on discharge from the hospital 07/25/2019, he was on, 1. Dutasteride 0.5 mg a day. 2. Metoprolol 50 mg twice a day. 3. Tramadol. 4. Eliquis 5 mg p.o. b.i.d. 5. Florastor 250 mg a day. 6. Vancomycin 125 mg p.o. q.6 hours. 7. He is plus or minus on meloxicam. ALLERGIES: NO KNOWN ALLERGIES. FAMILY HISTORY: Unavailable. SOCIAL HISTORY: Has common-law . Smoked in the past. Does not admit alcohol at this time. PHYSICAL EXAMINATION: VITAL SIGNS: The patient is oriented to person only, in no distress, whatsoever, blood pressure 133/62, pulse 65, respirations 20, temperature 98.1, and pulse ox 99 on room air. HEAD, EYES, EARS, NOSE, AND THROAT: Revealed pupils are equal and round. Extraocular movements are intact. Sclerae are white. Tympanic membranes are clear. Nose is clear. Oral mucous membranes are wet. Dental hygiene is fair. NECK: No jugular venous distention, adenopathy, or thyromegaly. CHEST: Clear to auscultation and percussion. HEART: Regular rate and rhythm. First and second heart sounds are clear. No murmurs or gallops. ABDOMEN: Soft. Bowel sounds are normal. No hepatosplenomegaly. No mass. No rebound. No bruits. EXTREMITIES: Reveal no cyanosis or clubbing. Reveals 2+ to 3+ edema. Pulses; carotid radial and femoral pulses intact. Pedal pulses obscured by edema. LYMPHATICS: No tender or swollen lymph nodes in axilla, inguinal, or cervical area. PSYCHIATRIC: Oriented to person only. Calm. NEUROLOGICAL: Cranial nerves 2 through 12 grossly intact. Deep tendon reflexes symmetric. Moves all extremities. DIAGNOSTIC STUDIES: EKG not available here. Report from [place], sinus bradycardia 59, right bundle branch block. Radiology, chest x-ray reviewed by me, normal cardiac silhouette, some flattening of the diaphragms and hyperinflation consistent with mild COPD. LABORATORY DATA: For some reason, troponin was done here is normal. Laboratory done in [place], white count 6.3, hemoglobin 9.2. Chemistries: Creatinine 1.57, BUN 26. Lytes balanced. For some reason troponins were done there. They were normal also. BNP is 490, which is lower than it was in his hospitalization prior. ASSESSMENT: 1. Acute kidney injury with elevated creatinine, most likely due to nonsteroidal anti-inflammatory drugs. 2. Edema, most likely associated with low hemoglobin in an elderly man. 3. Altered mental status. 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 4. Peptic ulcer disease found on last hospitalization. 5. Atrial fibrillation, now in regular sinus rhythm. 6. Chronic anticoagulation on Eliquis. 7. Positive Clostridium difficile, currently on vancomycin. No history of diarrhea. PLAN: We will repeat CBC, metabolic profile, put the patient on observation. I have reviewed his last hospitalization. The antral biopsy was negative for Helicobacter. We will attempt to confirm medicines. Job ID: [id number]
[2019-08-05 08:17] LABS: ALT (SGPT) 8 U/L (8-55); AST (SGOT) 10 U/L (5-34); Albumin 2.9 g/dL (3.4-4.8); Alkaline Phosphatase 47 U/L (40-110); Anion Gap 9 mmol/L (10-20); BUN (Urea Nitrogen) 24 mg/dL (8.4-25.7); Bilirubin, Total 0.9 mg/dL (0.2-1.2); Calc. Creatinine Clearance 0 mL/min (70-130); Carbon Dioxide 28 mmol/L (23-31); Chloride 106 mmol/L (98-107); Estimated GFR-MDRD 51; Globulin 1.9 g/dL (2.4-3.5); Glucose 93 mg/dL (83-110); Iron Binding Capacity, Total 131 mcg/dL (261-462); Potassium 4.4 mmol/L (3.5-5.1); Protein, Total 4.8 g/dL (5.8-8.1); Sodium 139 mmol/L (136-145)
[2019-08-05 08:51] LABS: Band 46 % (5-11); Eosinophils 3 % (0-10); Hypochromia SLIGHT = 6-15 cells (100X) (0-5/hpf); Lymphocytes 19 % (21-51); MDiff Complete? YES; Metamyelocyte 1 % (0-0); Monocytes 16 % (0-10); Neutrophil 13 % (42-75); Platelet Morphology Comment Appears Adequate; Polychromasia MODERATE = 3-4 cells (100X) (0-2/hpf); Reactive Lymphocytes 2 % (0-10)
[2019-08-05] MEDS ORDERED: Enoxaparin Sodium 40 MG/0.4 ML SYRINGE SC SCH (09:00)
--- NOTE | 2019-08-05 10:40 | CT ---
PRELIMINARY REPORT/[facility]/EMERGENCY AFTER HOURS PROCEDURE: PROCEDURE INFORMATION: Exam: CT Head Without Contrast Exam date and time: 08/05/2019 6:12 AM Clinical history: 79 years old, male; Altered mental status/memory loss; Patient HX: . [place]; 79 y/o m, with h/o dementia, presents to ED via transfer from [place] ED for acute AMS. Family reports th at PT became significantly altered from his baseline yesterday. TECHNIQUE: Imaging protocol: Computed tomography of the head without contrast. COMPARISON: No relevant prior studies available. FINDINGS: Brain: No mass effect or midline shift. No hemorrhage. Patchy whitte matter hypodensities are nonspec ific but may be seen in small vessel chronic ischemic changes. Ventricles: No ventriculomegaly. Bones/joints: No acute fracture. Sinuses: Visualized sinuses are unremarkable. No fluid levels. Mastoid air cells: Visualized mastoid air cells are well aerated. Soft tissues: Unremarkable. IMPRESSION: No acute intracranial abnormality. Thank you for allowing us to participate in the care of your patient. Dictated and Authenticated by: Ani Saleem MD 08/05/2019 6:27 AM Central Time ([place] & [place]) FINAL REPORT CT BRAIN WITHOUT CONTRAST: I agree with the preliminary report given by Lisa. POS: PABLITO
--- NOTE | 2019-08-05 17:35 | DIS ---
DATE OF ADMISSION: 08/05/2019 DATE OF DISCHARGE: 08/05/2019 PRIMARY CARE PROVIDER: Unknown in [place]. DISCHARGE DISPOSITION: Discharged home. FINAL DIAGNOSES: 1. Dementia. 2. Acute kidney injury. 3. Edema. 4. Anemia, iron deficient. 5. Atrial fibrillation. DISCHARGE MEDICATIONS: 1. Eliquis 5 mg p.o. b.i.d. 2. Avodart 0.5 mg a day. 3. Metoprolol 50 mg b.i.d. 4. Florastor 250 mg a day. 5. Vancomycin 125 mg p.o. q.i.d., finish course started in hospital. ALLERGIES: NO KNOWN DRUG ALLERGIES. PENDING AT THE TIME OF DISCHARGE: Nothing. CODE STATUS: Full. DIET: Heart healthy. CONSULTATIONS: None. PROCEDURES: None. HOSPITAL COURSE: The patient referred to the [facility] Hospitalist Service for acute encephalopathy, acute kidney injury, and edema. The patient had been recently discharged from the hospital after an episode of GI bleeding, atrial fibrillation, C difficile colitis, encephalopathy. The patient had 2+ edema. He had resumed his meloxicam, which had been stopped because of the GI bleeding. His physical exam was really unremarkable. His iron studies showed an iron deficiency anemia. His creatinine is 1.38. Hemoglobin 9.7. The patient was uncooperative with anything IV. Vital signs anything. The daughter came and I explained to her that his problem was senile dementia and she asked me for a medicine, I said there were really no good medicines. She needs to talk to his PCP. She said while he gave him medicines, but that did not help at all and I said that is an unfortunate truth. I said I send him out on his medicines he has been on plus he needs to take [id number] iron tablets once or twice a day and he needs to take no more NSAIDs, meloxicam, what ever because that is what is causing the edema and the increased creatinine. She was agreeable with taking him home and would make an appointment with the PCP. I suggested to do it within 1 week. Job ID: [id number]
[2019-08-05] MEDS ORDERED: Saccharomyces boulardii 250 MG CAP PO SCH (21:00)
[2019-08-05] MEDS ORDERED: Vancomycin HCl 25 MG/ML Oral PO SCH (21:00)
[2019-08-05] MEDS ORDERED: Metoprolol Tartrate 50 MG TAB PO SCH (21:00)
[2019-08-05] MEDS ORDERED: Apixaban 5 MG TAB PO SCH (21:00)
[2019-08-06] MEDS ORDERED: Dutasteride 0.5 MG CAP PO SCH (09:00)
== END 2019-08-05 17:41 | disposition home or self-care (01) ==
LOC: ERS 05:51 → ERHOLD 06:39 → 2SW 06:39
PROVIDERS: ADMIT Internal Medicine; ATTEND Internal Medicine
DX: F03.90 Unspecified dementia, unspecified severity, without behavioral disturbance, psychotic disturbance, mood disturbance, and anxiety (principal); N17.9 Acute kidney failure, unspecified; R60.9 Edema, unspecified; D50.9 Iron deficiency anemia, unspecified; I48.91 Unspecified atrial fibrillation; A04.72 Enterocolitis due to Clostridium difficile, not specified as recurrent; M06.9 Rheumatoid arthritis, unspecified; I10 Essential (primary) hypertension; Z87.891 Personal history of nicotine dependence; Z79.01 Long term (current) use of anticoagulants; Z79.1 Long term (current) use of non-steroidal anti-inflammatories (NSAID); Z79.2 Long term (current) use of antibiotics; Z79.899 Other long term (current) drug therapy
CPT/HCPCS: 70450; 80053; 83540; 83550; 84484; 85025; 99285; G0378 ×2; 36415